=== PATIENT | female | born 1955 | race Caucasian/White ===

== ENCOUNTER → 2019-03-04 | Outpatient (CLI) | payer BC ==
[2019-03-04 15:46] LABS: HEMATOCRIT 40 % (35-52); HEMOGLOBIN 13.1 G/DL (11.5-16.0); MEAN CORPUSCULAR HEMOGLOBIN 27 PG (25-34); MEAN CORPUSCULAR HGB CONC 33 G/DL (32-36); MEAN CORPUSCULAR VOLUME 82 FL (80-99); MEAN PLATELET VOLUME 10.1 FL (7.4-10.4); PLATELET COUNT 259 10^3/uL (130-400); WHITE BLOOD COUNT 6.5 10^3/uL (4.3-11.0)
[2019-03-04 15:47] LABS: BASOPHILS # (AUTO) 0.1 10^3/uL (0.0-0.1); BASOPHILS % (AUTO) 1 % (0-10); EOSINOPHILS # (AUTO) 0.3 10^3/uL (0.0-0.3); EOSINOPHILS % (AUTO) 5 % (0-10); LYMPHOCYTES # (AUTO) 1.1 X 10^3 (1.0-4.0); LYMPHOCYTES % (AUTO) 18 % (12-44); MONOCYTES # (AUTO) 0.5 X 10^3 (0.0-1.0); MONOCYTES % (AUTO) 7 % (0-12); NEUTROPHILS # (AUTO) 4.5 X 10^3 (1.8-7.8); NEUTROPHILS % (AUTO) 69 % (42-75)
[2019-03-04 16:04] LABS: CARBON DIOXIDE 28 MMOL/L (21-32); CHLORIDE 97 MMOL/L (98-107); POTASSIUM 3.5 MMOL/L (3.6-5.0); SODIUM 137 MMOL/L (135-145)
[2019-03-04 16:05] LABS: ALANINE AMINOTRANSFERASE 20 U/L (0-55); ALKALINE PHOSPHATASE 78 U/L (40-136); BILIRUBIN,TOTAL 0.3 MG/DL (0.1-1.0); BUN/CREATININE RATIO 18; CALCIUM 9.1 MG/DL (8.5-10.1); CREATININE SERUM 0.66 MG/DL (0.60-1.30); GFR ESTIMATED > 60; GLUCOSE 271 MG/DL (70-105); TOTAL PROTEIN 6.2 GM/DL (6.4-8.2)
== END ==
LOC: LAB FS 14:45
PROVIDERS: ATTEND Internal Medicine Hematology & Oncology
DX: C82.08 Follicular lymphoma grade I, lymph nodes of multiple sites (principal)
CPT/HCPCS: 36415; 80053; 81270; 82728; 82784; 83540; 83615; 85025

== ENCOUNTER → 2019-03-05 | Outpatient (CLI) | payer BC ==
[~2019-03-05] MED LIST: CATHETER FLUSH 10 ML SYR IV PRN; DIATRIZOATE MEGLUM/SODIUM 37% 120 ML (GASTROGRAFIN) PO ONE; HOLD METFORMIN - RECEIVED CONTRAST 20 ML VIAL IV SCH; IOHEXOL 350 MG/ML 150 ML (OMNIPAQUE 350) VIAL IV ONE; NS 100 ML (IVPB) BAG IV ONE
--- NOTE | 2019-03-05 10:45 | Diagnostic Imaging Report ---
CT NECK/CHEST/ABDOMEN/PELVIS W Technique: CT imaging of the neck, chest, abdomen and pelvis was performed with IV contrast. Automatic exposure controls were utilized to keep dose as low as reasonably achievable. Indication: Follicular lymphoma. Comparison: None available. Findings: CT NECK: No cervical lymphadenopathy. The thyroid is normal. Submandibular and parotid glands are normal in appearance. Airways are widely patent. No abnormal mucosal thickening or soft tissue mass within the pharynx or larynx. Ankylosis versus arthrodesis of C5-C6. No concerning focal osseous lesions. CT CHEST: No supraclavicular or axillary lymphadenopathy. No mediastinal, hilar or juxtaphrenic lymphadenopathy. Heart is normal in size without pericardial effusion. Normal caliber thoracic aorta. No endoluminal nodule within the trachea. No pulmonary mass or consolidation. No concerning pulmonary nodule. No pleural effusion. No lytic or blastic skeletal lesions. CT ABDOMEN AND PELVIS: Liver is on the upper limits of normal in size although this is likely due to normal Nia lobe. No splenomegaly. No focal lesion within the spleen or liver. Pancreas is normal. No radiopaque gallstones or biliary duct dilatation. No adrenal mass. Kidneys enhance symmetrically without mass lesion or surrounding soft tissue induration. No obstructive uropathy. Urinary bladder is normal. Status post hysterectomy. No pericolonic inflammation. No bowel obstruction. The stomach is partially filled with fluid and there is no wall thickening. Normal appendix. Normal caliber abdominal aorta. No abdominal or pelvic lymphadenopathy. No worrisome focal osseous lesion. Impression: 1. No lymphadenopathy in the neck, chest, abdomen or pelvis. 2. No organomegaly. Dictated by: Dictated on workstation # [id number]
== END ==
LOC: RAD FS 08:37
PROVIDERS: ATTEND Internal Medicine Hematology & Oncology
DX: C82.90 Follicular lymphoma, unspecified, unspecified site (principal)
CPT/HCPCS: 70491; 71260; 74176

== ENCOUNTER 2020-09-02 09:19 | Outpatient (RCR) | payer BC ==
[2020-09-02 10:04] LABS: BASOPHILS # (AUTO) 0.1 10^3/uL (0.0-0.1); BASOPHILS % (AUTO) 1 % (0-10); EOSINOPHILS # (AUTO) 0.3 10^3/uL (0.0-0.3); EOSINOPHILS % (AUTO) 5 % (0-10); HEMATOCRIT 44 % (35-52); HEMOGLOBIN 14.3 g/dL (11.5-16.0); LYMPHOCYTES # (AUTO) 1.2 10^3/uL (1.0-4.0); LYMPHOCYTES % (AUTO) 18 % (12-44); MEAN CORPUSCULAR HEMOGLOBIN 27 pg (25-34); MEAN CORPUSCULAR HGB CONC 32 g/dL (32-36); MEAN CORPUSCULAR VOLUME 84 fL (80-99); MEAN PLATELET VOLUME 9.9 fL (9.0-12.2); MONOCYTES # (AUTO) 0.6 10^3/uL (0.0-1.0); MONOCYTES % (AUTO) 8 % (0-12); NEUTROPHILS # (AUTO) 4.7 10^3/uL (1.8-7.8); NEUTROPHILS % (AUTO) 68 % (42-75); PLATELET COUNT 315 10^3/uL (130-400); WHITE BLOOD COUNT 6.9 10^3/uL (4.3-11.0)
[2020-09-02 10:16] LABS: ALANINE AMINOTRANSFERASE 34 U/L (0-55); ALBUMIN 4.2 GM/DL (3.2-4.5); ALKALINE PHOSPHATASE 74 U/L (40-136); BILIRUBIN,TOTAL 0.5 MG/DL (0.1-1.0); BUN/CREATININE RATIO 13; CALCIUM 9.1 MG/DL (8.5-10.1); CARBON DIOXIDE 26 MMOL/L (21-32); CHLORIDE 101 MMOL/L (98-107); CREATININE SERUM 0.76 MG/DL (0.60-1.30); GFR ESTIMATED > 60; GLUCOSE 173 MG/DL (70-105); POTASSIUM 4.1 MMOL/L (3.6-5.0); SODIUM 138 MMOL/L (135-145); TOTAL PROTEIN 6.5 GM/DL (6.4-8.2)
[2020-10-19] MEDS ORDERED: POTA10TA36 PO (14:44)
[2020-10-19] MEDS ORDERED: DULA1.5P2 SQ (14:44)
[2020-10-19] MEDS ORDERED: LEVO150C4 PO (14:44)
[2020-10-19] MEDS ORDERED: FLUO20TA28 PO (14:44)
[2020-10-19] MEDS ORDERED: METF-399 PO (14:44)
[2020-10-19] MEDS ORDERED: LOSA50TA63 PO (14:44)
[2020-10-19] MEDS ORDERED: LORA-405 PO (14:44)
[2020-10-19] MEDS ORDERED: INSU100I29 SQ (14:44)
[2020-10-19] MEDS ORDERED: HYDR25TA4 PO (14:44)
[2020-10-19] MEDS ORDERED: OMEP40CA6 PO (14:44)
[2020-10-19] MEDS ORDERED: DULO30CA49 PO (14:44)
[2020-10-19] MEDS ORDERED: ATOR20TA66 PO (14:44)
[2020-10-26] MEDS ORDERED: ASPI-1238 PO (11:58)
[2020-10-26] MEDS ORDERED: RT-ALBUINH IH (11:58)
[2020-10-26] MEDS ORDERED: CINN500C2 PO (11:58)
[2020-10-26] MEDS ORDERED: VITA1TAB33 PO (11:58)
[2020-10-26] MEDS ORDERED: MAGN500C15 PO (11:58)
[2020-10-26] MEDS ORDERED: GARL10002 PO (11:58)
[2020-10-26] MEDS ORDERED: CALC-140 PO (11:58)
[2020-10-26] MEDS ORDERED: TIZA4TAB4 PO (11:58)
[2020-10-26] MEDS ORDERED: OMG1KC PO (11:58)
== END 2020-12-01 | disposition home or self-care (01) ==
LOC: ONC 09:19
PROVIDERS: ATTEND Internal Medicine Hematology & Oncology
DX: C82.90 Follicular lymphoma, unspecified, unspecified site (principal); J45.909 Unspecified asthma, uncomplicated; E11.9 Type 2 diabetes mellitus without complications; I10 Essential (primary) hypertension; E03.9 Hypothyroidism, unspecified; Z92.21 Personal history of antineoplastic chemotherapy; K29.70 Gastritis, unspecified, without bleeding; K44.9 Diaphragmatic hernia without obstruction or gangrene; E66.01 Morbid (severe) obesity due to excess calories; Z79.890 Hormone replacement therapy; Z79.899 Other long term (current) drug therapy; Z79.4 Long term (current) use of insulin; Z68.41 Body mass index [BMI] 40.0-44.9, adult
CPT/HCPCS: 80053; 82784 ×3; 83615; 83883; 84165; 85025; G0463; 84155; 99214

== ENCOUNTER → 2020-09-07 | Outpatient (CLI) | payer BC ==
[~2020-09-07] MED LIST changes: +BARIUM SUSPENSION 2.1% (VANILLA SILQ) 450 ML PO ONE; -DIATRIZOATE MEGLUM/SODIUM 37% 120 ML (GASTROGRAFIN) PO ONE
--- NOTE | 2020-09-07 11:28 | Diagnostic Imaging Report ---
PROCEDURE: CT Neck, Chest Abdomen and Pelvis with contrast, Abdomen and Pelvis without. TECHNIQUE: Multiple contiguous axial images were obtained through the neck, chest, abdomen, and pelvis after the uneventful bolus administration of intravenous contrast. Precontrast acquisitions through the abdomen and pelvis were performed. Sagittal and coronal reformations are then performed. Auto Exposure Controls were utilized during the CT exam to meet ALARA standards for radiation dose reduction. INDICATION: Non-Hodgkin's lymphoma. Study is performed for yearly follow-up. Correlation is made with prior CT from 03/05/2019. CT NECK: Imaging through the portions of brain does show hyperdensity within the central aspect of the yoni measuring 8 mm. This could represent a cavernoma. Posterior nasopharynx and oropharynx are unremarkable. Parapharyngeal fat planes are preserved. Epiglottis and larynx are unremarkable. A partially calcified tiny nodule left lobe of the thyroid is noted. Bilateral submandibular glands are unremarkable. No discrete parotid mass is identified. No cervical lymphadenopathy is detected. IMPRESSION: 1. No cervical lymphadenopathy is detected. 2. Rounded hyperdensity in the central yoni, perhaps a cavernoma. MRI of the brain with and without contrast would be recommended for further evaluation. CT CHEST: No supraclavicular or axillary lymphadenopathy is detected. No definite mediastinal or hilar lymphadenopathy is identified. No pericardial or pleural fluid is detected. Bony structures are unremarkable. IMPRESSION: Stable CT chest. No thoracic lymphadenopathy is detected. CT abdomen pelvis: No liver masses identified. Gallbladder is unremarkable. Pancreas and spleen are unremarkable. No adrenal mass is detected. Kidneys are unremarkable. Aorta is nonaneurysmal. No central, retroperitoneal or mesenteric lymphadenopathy is seen. The small and large bowel loops are normal caliber. There is no free fluid or fluid collection. No definite inguinal or iliac lymphadenopathy is identified. The bladder is unremarkable. Uterus appears to be absent or atrophic. IMPRESSION: No evidence of abdominal or pelvic lymphadenopathy. No acute features detected. Dictated by: Dictated on workstation # [id number]
== END ==
LOC: RAD FS 09:34
PROVIDERS: ATTEND Internal Medicine Hematology & Oncology
DX: G93.89 Other specified disorders of brain (principal); Z85.72 Personal history of non-Hodgkin lymphomas
CPT/HCPCS: 70491; 71260; 74178

== ENCOUNTER → 2020-10-03 | Outpatient (CLI) | payer BC ==
[~2020-10-03] MED LIST changes: -BARIUM SUSPENSION 2.1% (VANILLA SILQ) 450 ML PO ONE; -CATHETER FLUSH 10 ML SYR IV PRN; +GADOBUTROL 10 MMOL/10 ML (GADAVIST) VIAL IV ONE; -HOLD METFORMIN - RECEIVED CONTRAST 20 ML VIAL IV SCH; -IOHEXOL 350 MG/ML 150 ML (OMNIPAQUE 350) VIAL IV ONE; -NS 100 ML (IVPB) BAG IV ONE
--- NOTE | 2020-10-03 11:10 | Diagnostic Imaging Report ---
PROCEDURE: MR imaging of the brain with and without contrast. TECHNIQUE: Multiplanar, multisequence MR imaging of the brain was performed with and without contrast. INDICATION: Abnormal finding in the yoni on recent CT of the neck. COMPARISON: CT neck with IV contrast 03/05/2019, 09/07/2020. FINDINGS: There is an enhancing mass in the central yoni measuring 0.7 x 1.0 x 0.7 cm. There is no significant vasogenic edema about this mass. No associated susceptibility artifact or restricted water diffusion. There is a subtle suggestion of a small vessel traversing anteriorly. No other abnormal intracranial signal or enhancement. No evidence of acute infarction or hemorrhage. No hydrocephalus or extra-axial fluid collections. Normal intracranial flow voids. Normal morphology of the major midline structures, sella, posterior fossa and cerebellar pontine angle. Postoperative changes in the globes. The visualized paranasal sinuses and mastoids are clear. Normal bone marrow signal. IMPRESSION: Indeterminate enhancing mass centrally in the yoni measuring up to 0.7 cm. There is suggestion of a small vessel traversing anterior from this mass. No associated hemosiderin deposition or cystic change. No restricted water diffusion. These findings are nonspecific and could represent a vascular anomaly such as a cavernoma or capillary telangiectasia. A solid mass such as a glioma or metastasis could have a similar appearance. Vascular anomalies are considered most likely given this mass has been present since at least 03/05/2019. Recommend neurosurgical evaluation. Dictated by: Dictated on workstation # [id number]
== END ==
LOC: RAD 09:56
PROVIDERS: ATTEND Nurse Practitioner Family
DX: R90.89 Other abnormal findings on diagnostic imaging of central nervous system (principal)
CPT/HCPCS: 70553

== ENCOUNTER → 2020-10-13 | Outpatient (CLI) | payer BC ==
--- NOTE | 2020-10-13 10:02 | Diagnostic Imaging Report ---
PROCEDURE: US Gallbladder. TECHNIQUE: Multiple real-time grayscale images were obtained over the right upper quadrant in various projections. INDICATION: Abdominal pain. Overall quality study is somewhat limited due to patient's body habitus and overlying bowel gas. Liver is enlarged 19 cm. There is some increased echogenicity throughout the liver consistent with hepatic steatosis. No discrete liver mass is detected. The portal vein is patent and shows normal direction of flow. Gallbladder is without stones or sludge. No wall thickening or biliary ductal dilatation is seen. The visualized pancreas is unremarkable. Aorta appears nonaneurysmal. IVC is patent. Right kidney is without calculi or hydronephrosis. There is no ascites. IMPRESSION: 1. Hepatomegaly and hepatic steatosis. 2. No evidence of cholelithiasis or acute cholecystitis. Dictated by: Dictated on workstation # [id number]
== END ==
LOC: RAD FS 08:41
PROVIDERS: ATTEND Surgery
DX: K76.0 Fatty (change of) liver, not elsewhere classified (principal); R16.0 Hepatomegaly, not elsewhere classified
CPT/HCPCS: 76705

== ENCOUNTER 2020-10-19 05:40 | Outpatient (CLI) | payer BC ==
[~2020-10-19] VITALS: Ht 160 cm; Wt 106.6 kg
[2020-10-19] MEDS ORDERED: METF-399 PO (14:44)
[2020-10-19] MEDS ORDERED: DULO30CA49 PO (14:44)
[2020-10-19] MEDS ORDERED: LEVO150C4 PO (14:44)
[2020-10-19] MEDS ORDERED: HYDR25TA4 PO (14:44)
[2020-10-19] MEDS ORDERED: ATOR20TA66 PO (14:44)
[2020-10-19] MEDS ORDERED: FLUO20TA28 PO (14:44)
[2020-10-19] MEDS ORDERED: INSU100I29 SQ (14:44)
[2020-10-19] MEDS ORDERED: LORA-405 PO (14:44)
[2020-10-19] MEDS ORDERED: LOSA50TA63 PO (14:44)
[2020-10-19] MEDS ORDERED: OMEP40CA6 PO (14:44)
[2020-10-19] MEDS ORDERED: DULA1.5P2 SQ (14:44)
[2020-10-19] MEDS ORDERED: POTA10TA36 PO (14:44)
== END 2020-10-19 15:30 | disposition home or self-care (01) ==
LOC: PREOP 05:40
PROVIDERS: ATTEND Surgery
DX: Z01.818 Encounter for other preprocedural examination (principal)

== ENCOUNTER → 2020-10-24 | Outpatient (CLI) | payer BC ==
[~2020-10-24] MED LIST changes: +ASPI-1238 PO; +ATOR20TA66 PO; +CALC-140 PO; +CATHETER FLUSH 10 ML SYR IV PRN; +CINN500C2 PO; +DULA1.5P2 SQ; +DULO30CA49 PO; +FLUO20TA28 PO; -GADOBUTROL 10 MMOL/10 ML (GADAVIST) VIAL IV ONE; +GARL10002 PO; +HYDR25TA4 PO; +INSU100I29 SQ; +LEVO150C4 PO; +LORA-405 PO; +LOSA50TA63 PO; +MAGN500C15 PO; +METF-399 PO; +OMEP40CA6 PO; +OMG1KC PO; +POTA10TA36 PO; +RT-ALBUINH IH; +TIZA4TAB4 PO; +VITA1TAB33 PO
--- NOTE | 2020-10-24 14:45 | Diagnostic Imaging Report ---
INDICATION: Generalized abdominal pain. Patient was administered 4.0 mCi technetium 99m Choletec intravenously and imaging over the abdomen was performed. There is homogeneous uptake of activity by the liver. This prompt excretion of activity into the gallbladder and common duct. Normal passage of activity into the small bowel is noted. Gallbladder ejection fraction is lower limits of normal at 38%. IMPRESSION: Normal HIDA scan and gallbladder ejection fraction. Dictated by: Dictated on workstation # [id number]
== END ==
LOC: CARD 12:00
PROVIDERS: ATTEND Surgery
DX: R10.84 Generalized abdominal pain (principal)
CPT/HCPCS: 78227; A9537

== ENCOUNTER → 2020-10-24 | Outpatient (CLI) | payer BC ==
[~2020-10-24] MED LIST changes: -CATHETER FLUSH 10 ML SYR IV PRN
== END ==
LOC: LAB FS 10:00
PROVIDERS: ATTEND Surgery
DX: Z01.812 Encounter for preprocedural laboratory examination (principal); K30 Functional dyspepsia; R14.0 Abdominal distension (gaseous); Z20.822 Contact with and (suspected) exposure to COVID-19
CPT/HCPCS: 87635

== ENCOUNTER 2020-10-26 11:26 | Day surgery (SDC) | payer BC ==
[2020-10-26] VITALS (7 sets, daily range): BP systolic 108–159; BP diastolic 52–92
[~2020-10-26] VITALS: Ht 160 cm; Wt 107.0 kg
[~2020-10-26 11:26] MED LIST changes: -ASPI-1238 PO; -CALC-140 PO; -CINN500C2 PO; -GARL10002 PO; -MAGN500C15 PO; -OMG1KC PO; -RT-ALBUINH IH; -TIZA4TAB4 PO; -VITA1TAB33 PO
[2020-10-26] MEDS ORDERED: LACTATED RINGERS 1,000 ML IV STA (11:27)
[2020-10-26] MEDS ORDERED: HURRICAINE EXT TUBE (BENZOCAINE) XX PRN (11:30)
[2020-10-26] MEDS ORDERED: LACTATED RINGERS 1,000 ML IV ONE (11:32)
--- NOTE | 2020-10-26 11:39 | Progress Note-Pre Operative ---
Pre-Operative Progress Note H&P Reviewed The H&P was reviewed, patient examined and no changes noted. Time Seen by Provider: 11:37 Date H&P Reviewed: Oct 26, 2020 Time H&P Reviewed: 11:37 Pre-Operative Diagnosis: GERD, Hx of griffin's, bloating ELAINA NAVARRO DO Oct 26, 2020 11:39
[2020-10-26] MEDS ORDERED: OMG1KC PO (11:58)
[2020-10-26] MEDS ORDERED: TIZA4TAB4 PO (11:58)
[2020-10-26] MEDS ORDERED: GARL10002 PO (11:58)
[2020-10-26] MEDS ORDERED: VITA1TAB33 PO (11:58)
[2020-10-26] MEDS ORDERED: ASPI-1238 PO (11:58)
[2020-10-26] MEDS ORDERED: RT-ALBUINH IH (11:58)
[2020-10-26] MEDS ORDERED: CALC-140 PO (11:58)
[2020-10-26] MEDS ORDERED: CINN500C2 PO (11:58)
[2020-10-26] MEDS ORDERED: MAGN500C15 PO (11:58)
[2020-10-26] MEDS ORDERED: proPOfol 200 MG/20 ML (DIPRIVAN) VIAL IV ONE (12:13)
--- NOTE | 2020-10-26 12:30 | Progress Note-Post Operative ---
Post-Operative Progess Note Surgeon (s)/Management Professor (s) Surgeon ELAINA NAVARRO DO Management Professor: NONE Pre-Operative Diagnosis GERD, Hx of griffin's, bloating Post-Operative Diagnosis Same plus gastritis Hiatal hernia Procedure & Operative Findings Date of Procedure 10/26/20 Procedure Performed/Findings PROCEDURE NOTE: After informed consent was obtained, the patient was brought to the endoscopy suite, placed in bed in left lateral decubitus position. She was administered IV sedation by the DIORAMA MODEL MAKER who then monitored her vitals the entire time, heart rate, blood pressure and pulse ox and the scope was inserted down the mouth through the esophagus into the stomach. On the way down, noted some mild esophagitis, took a picture, pushed into the stomach, pushed past the antrum into the duodenum. Duodenum looked good. Pulled back and did a biopsy of antrum (looked like some mild gastritis), then retroflexed the scope, saw a small hiatal hernia, took a picture of this. Next did a biopsy of the body of the stomach and then pulled the scope into the GE junction, took another picture of the hiatal hernia and then did a biopsy of the GE junction. Pushed the scope back into the stomach, suctioned all the air out of the stomach. At this point pulled the scope up the esophagus and out the mouth. The patient tolerated the procedure, and she recovered in endoscopy suite. Anesthesia Type IV sedation by DIORAMA MODEL MAKER Estimated Blood Loss Estimated blood loss (mL): scant Specimens/Packing Specimens Removed antral bx body of stomach bx GE jxn bx x 2 ELAINA NAVARRO DO Oct 26, 2020 12:30
--- NOTE | 2020-10-26 12:31 | Endoscopy Discharge Instruct ---
Endo Procedure/Findings Findings 1.: Gastritis 2.: Hiatal Hernia Discharge Instructions - Activity: You might feel a little sleepy until tomorrow. This is due to the medicine you received to relax you. Until tomorrow, you should: NOT drive a car, operate machinery or power tools. NOT drink any alcoholic beverages. NOT make any important decisions or sign importortant papers. Do not return to work until tomorrow, unless otherwise instructed. Resume previous activities tomorrow. Diet: Start by taking liquids. If you tolerate liquids, advance to solid food. 1.: EGD in 3 years Notify Physician - If you experience excessive bleeding, unusual abdominal pain, fever, or chest pain, contact your doctor immediately. ELAINA NAVARRO DO Oct 26, 2020 12:31
--- NOTE | 2020-10-26 14:13 | Anesthesia-General Post-Op ---
MAC Patient Condition Mental Status/LOC: Same as Preop Cardiovascular: Satisfactory Nausea/Vomiting: Absent Respiratory: Satisfactory Pain: Controlled Complications: Absent Post Op Complications Complications None Follow Up Care/Instructions Patient Instructions None needed. Anesthesiology Discharge Order Discharge Order Patient is doing well, no complaints, stable vital signs, no apparent adverse anesthesia problems. No complications reported per nursing. BALJINDER OTOOLE CRNA Oct 26, 2020 14:13
== END 2020-10-26 13:11 | disposition home or self-care (01) ==
LOC: ENDO 11:26
PROVIDERS: ATTEND Surgery
DX: K21.00 Gastro-esophageal reflux disease with esophagitis, without bleeding (principal); K29.50 Unspecified chronic gastritis without bleeding; K22.8 Other specified diseases of esophagus; K44.9 Diaphragmatic hernia without obstruction or gangrene; E03.9 Hypothyroidism, unspecified; E66.01 Morbid (severe) obesity due to excess calories; E11.9 Type 2 diabetes mellitus without complications; I10 Essential (primary) hypertension; J45.909 Unspecified asthma, uncomplicated; F32.9 Major depressive disorder, single episode, unspecified; Z79.890 Hormone replacement therapy; Z79.899 Other long term (current) drug therapy; Z79.84 Long term (current) use of oral hypoglycemic drugs; Z90.710 Acquired absence of both cervix and uterus; Z87.19 Personal history of other diseases of the digestive system; Z87.11 Personal history of peptic ulcer disease; Z68.41 Body mass index [BMI] 40.0-44.9, adult; Z85.828 Personal history of other malignant neoplasm of skin; Z80.3 Family history of malignant neoplasm of breast; Z80.1 Family history of malignant neoplasm of trachea, bronchus and lung; Z80.52 Family history of malignant neoplasm of bladder; Z80.51 Family history of malignant neoplasm of kidney

== ENCOUNTER 2020-12-17 06:23 | Emergency (ER) | payer BC ==
[~2020-12-17] VITALS: Ht 160 cm; Wt 106.1 kg
[~2020-12-17 06:23] MED LIST changes: +ASPI-1238 PO; +CALC-140 PO; +CINN500C2 PO; +GARL10002 PO; +MAGN500C15 PO; +OMG1KC PO; +RT-ALBUINH IH; +TIZA4TAB4 PO; +VITA1TAB33 PO
[2020-12-17 06:30] VITALS: BP 168/81
--- OUTSIDE RECORDS SUMMARY | 2020-12-17 06:30 | XMS REPORT | Clinical Summary ---
Author Author [facility] Organization [facility] Address Unknown Phone Unavailable Care Team Providers Care Business Education Teacher Name Role Phone Luisa Valencia HAY BALER PCP Allergies Not on File Medications Not on file Active Problems Not on file Encounters Care Team Description Date Type Specialty Luisa Valencia NP Abnormal MRI of head (Primary Dx) 10/24/2020 Transcribe Neurology Orders from Last 3 Months Social History Date Tobacco Use Types Packs/Day Years Used Never Assessed Sex Assigned at Date Recorded Not on file Last Filed Vital Signs Not on file Plan of Treatment Not on file Results Not on filefrom Last 3 Months Insurance Type Payer Benefit Subscriber ID Effective Phone Address Plan / Dates Group [facility] [id number] [id number] EXCHANGE resent HMO
--- OUTSIDE RECORDS SUMMARY | 2020-12-17 06:30 | XMS REPORT | Encounter Summary ---
Author Author [facility] Organization [facility] Address Unknown Phone Unavailable Care Team Providers Care Balance Recesser Name Role Phone Maribell Stone NP PCP Luisa Valencia DIRECTOR EXPORT 21 Encounter Details Care Team Description Date Type Department 11/23/2020 Travel Social History Date Tobacco Use Types Packs/Day Years Used Never Smoker Smokeless Tobacco: Never Used Comments Alcohol Use Standard Drinks/Week Never 0 (1 standard drink = 0.6 o z pure alcohol) Alcohol Habits Answer Date Recorded How often do you have a drink containing alcohol? Never 11/23/2020 How many drinks containing alcohol do you have on No t asked a typical day when you are drinking? How often do you have six or more drinks on one Not asked occasion? Sex Assigned at Date Recorded Not on file Date Recorded COVID-19 Exposure Response 11/23/2020 9:57 AM CDT In the last month, have you been in contact with No / Unsure someone who was confirmed or suspected to have Coronavirus / COVID-19? documented as of this encounter Plan of Treatment Not on filedocumented as of this encounter Visit Diagnoses Not on filedocumented in this encounter
--- OUTSIDE RECORDS SUMMARY | 2020-12-17 06:30 | XMS REPORT | Encounter Summary ---
Author Author [facility] Organization [facility] Address Unknown Phone Unavailable Care Team Providers Care Bd Special Education Teacher Name Role Phone Luisa Valencia NP PCP Reason for Referral * Consultation (Routine) Referred By Contact Referred To Contact Status Reason Specialty Diagnoses / Procedures Luisa Valencia NP [address] [place] [address] Closed Specialty Services Diagnoses Required Abnormal MRI of head Electronically signed by Luisa Valencia NP at Encounter Details Care Team Description Date Type Department Luisa Valencia NP [address], [place] [id number] Abnormal MRI of head (Primary Dx) 10/24/2020 Transcribe [facility] Neurol ogy Orders [address], [address] [place] [id number] Social History Date Tobacco Use Types Packs/Day Years Used Never Assessed Sex Assigned at Date Recorded Not on file documented as of this encounter Plan of Treatment Order Schedule Name Type Priority Associated Diag noses 1 Occurrences starting 10/24/2020 until 10/24/2021 Amb Referral To Neurology Outpatient Routine Abno rmal MRI of head Referral documented as of this encounter Visit Diagnoses Diagnosis Abnormal MRI of head - Primary Nonspecific (abnormal) findings on radi ological and other examination of skull and head documented in this encounter
--- OUTSIDE RECORDS SUMMARY | 2020-12-17 06:30 | XMS REPORT | Clinical Summary ---
Author Author [facility] Organization [facility] Address Unknown Phone Unavailable Care Team Providers Care Congressional Assistant Name Role Phone Maribell Stone NP PCP Luisa Valencia APRN 21 Source Comments Some departments are not documenting in the electronic medical record. If you d o not see the information that you expected, contact Release of Information in [facility] Information Management department at [phone] for further assistan ce in locating additional records.[facility] Allergies Comments Active Allergy Reactions Severity Noted Date plasic Adhesive Tape (Rosins) RASH Medium 021 Medications End Date Status Medication Sig Dispensed Refills Start Date Active levothyroxine (SYNTHROID) Take 150 mcg 0 150 mcg tablet by mouth daily 30 minutes before breakfast. Active losartan (COZAAR) 50 mg Take 50 mg by 0 tablet mouth twice daily. Active metFORMIN (GLUCOPHAGE) Take 1,000 mg 0 1,000 mg tablet by mouth twice daily with meals. Active hydroCHLOROthiazide Take 25 mg by 0 (HYDRODIURIL) 25 mg mouth every tablet morning. Active potassium chloride SR Take 10 mEq 0 (K-DUR) 10 mEq tablet by mouth twice daily. Take with a meal and a full glass of water. Active INSULIN DETEMIR U-100 SC Inject 21 0 Units under the skin twice daily. Active dulaglutide (TRULICITY) Inject 0.75 0 0.75 mg/0.5 mL injection mg under the pen skin every 7 days. Active atorvastatin (LIPITOR) 20 Take 20 mg by 0 mg tablet mouth daily. Active fluticasone propionate Inhale 4 0 (FLOVENT HFA) 220 puffs by mcg/actuation inhaler mouth into the lungs twice daily. Active omeprazole DR (PRILOSEC) Take 40 mg by 0 40 mg capsule mouth daily before breakfast. Active albuterol sulfate (PROAIR Inhale 2 0 HFA) 90 mcg/actuation HFA puffs by aerosol inhaler mouth into the lungs every 6 hours as needed for Wheezing or Shortness of Breath. Shake well before use. Active ascorbic acid (VITAMIN C) Take 500 mg 0 500 mg tablet by mouth daily. Active aspirin EC 81 mg tablet Take 81 mg by 0 mouth daily. Take with food. Active vitamins, B complex tab Take 1 tablet 0 by mouth daily. Active calcium carbonate/vitamin Take 1 tablet 0 D2 (CALCIUM + VITAMIN D by mouth PO) daily. Active fish oil- omega 3-DHA/EPA Take 1 0 300/1,000 mg capsule capsule by mouth daily. Active Garlic 1,000 mg cap Take 1 0 capsule by mouth daily. Active Cinnamon Bark (CINNAMON) Take 1,000 mg 0 500 mg cap by mouth twice daily. Active Magnesium 250 mg tab Take 500 mg 0 by mouth every evening. Active cholecalciferol (VITAMIN Take 2,000 0 D-3) 1,000 units tablet Units by mouth daily. Active TURMERIC PO Take 500 mg 0 by mouth daily. 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) 11/23/2020 Office Visit Neurosurgery 11/23/2020 Travel from Last 3 Months Immunizations Name Administration Dates Next Due Surgical History Surgery Date Site/Laterality Comments CARPAL TUNNEL RELEASE 04/29/1994 - Right 04/28/1995 SPINE SURGERY CARPAL TUNNEL RELEASE 04/29/2001 - Left 04/28/2002 FINGER TRIGGER RELEASE 04/29/2004 - Right 04/28/2005 BREAST SURGERY 04/29/2004 - Bilateral Reduction mammo plasty 04/28/2005 HX HYSTERECTOMY SKIN CANCER DESTRUCTION Right side of nose HX CATARACT REMOVAL Medical History Medical History Date Comments Cancer (HCC) 2011 Squamous Cell CA DM (diabetes mellitus) (HCC) GERD (gastroesophageal reflux disease) Hypertension High cholesterol Depression Thyroid disease Asthma Family History Medical History Relation Name Comments Arthritis Mother Depression Mother Diabetes Mother Heart Disease Mother Hypertension Mother Relation Name Status Comments Mother Social History Date Tobacco Use Types Packs/Day [...] or suspected to have Coronavirus / COVID-19? Last Filed Vital Signs Reading Time Taken Comments Vital Sign 152/87 11/23/2020 10:57 AM CDT patient with mon itor at home and notify PCP Blood Pressure 74 11/23/2020 10:57 AM CDT Pulse - - Temperature - - Respiratory Rate - - Oxygen Saturation - - Inhaled Oxygen Concentration 104.3 kg (230 lb) 11/23/2020 10:57 AM CDT Weight 160 cm (5' 3") 11/23/2020 10:57 AM CDT Height 40.74 11/23/2020 10:57 AM CDT Body Mass Index Plan of Treatment Health Maintenance Due Date Last Done Comments HIV SCREENING 1971 DTAP/TDAP VACCINES (1 - 1974 Tdap) HEPATITIS C SCREENING 1974 PHYSICAL (COMPREHENSIVE) 1974 EXAM CERVICAL CANCER SCREENING 1977 BREAST CANCER SCREENING 1996 COLORECTAL CANCER 2006 SCREENING SHINGLES RECOMBINANT 04/26/2016 03/01/2016 VACCINE (2 of 2) INFLUENZA VACCINE 01/27/2021 12/30/2019, 03/03/2019 COVID-19 VACCINE Completed 08/03/2020, 07/05/2020 Results Not on filefrom Last 3 Months Insurance Type Payer Benefit Subscriber ID Effective Phone Address Plan / Dates Group [facility] [id number] 2020-P [id number] Advance Directives Patient Warm In Explanation Type Date Recorded Advance Directive/DPOA
--- OUTSIDE RECORDS SUMMARY | 2020-12-17 06:30 | XMS REPORT | Encounter Summary ---
Author Author [facility] Organization [facility] Address Unknown Phone Unavailable Care Team Providers Care Billboard Mechanic Name Role Phone Maribell Stone NP PCP Luisa Valencia INSTITUTIONAL CUSTODIAN 21 Reason for Visit * Reason Comments New Patient "spot show up on MRI" * Consult, Test & Treat (Routine) Referred By Contact Referred To Contact Status Reason Specialty Diagnoses / Procedures Luisa Valencia APRN [address] [place] [address] [facility] Neurosurg [address] [place] [address] Authorized Neurosurgery Diagnoses Abnormal MRI of head Encounter Details Care Team Description Date Type Department Arnoldo Sadler MD [address] [place] [address] 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 documented as of this encounter Last Filed Vital Signs Reading Time Taken Comments Vital Sign 152/87 11/23/2020 10:57 AM CDT patient with renee itor at home and notify PCP Blood Pressure 74 11/23/2020 10:57 AM CDT Pulse - - Temperature - - Respiratory Rate - - Oxygen Saturation - - Inhaled Oxygen Concentration 104.3 kg (230 lb) 11/23/2020 10:57 AM CDT Weight 160 cm (5' 3") 11/23/2020 10:57 AM CDT Height 40.74 11/23/2020 10:57 AM CDT Body Mass Index documented in this encounter Progress Notes * Arnoldo Sadler MD - 11/23/2020 10:30 AM CDT NEUROSURGERY CLINIC CONSULT NOTE 11/23/2020 NAME: Jody Rhodes : 1955 PRIMARY CARE PROVIDER: Maribell Stone REFERRING PROVIDER: Luisa Valencia APRN CONSULT DATE: 11/23/2020 Reason for Visit: New Patient ("spot show up on MRI") HISTORY OF PRESENT ILLNESS: I am seeing Jody Rhodes in neurosurgical consul tation today at the request of Luisa Valencia APRN for the evaluation of and tr eatment recommendations regarding an abnormality in the yoni noted on a recent b rain MRI. She is a 65 y.o. female with a history of hypertension, hypercholester olemia, diabetes mellitus, and lymphoma. 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 She was treated with chemotherapy, completing treatments in 2012. Since that time, she has been monitored with intermittent CT scans of the neck, chest abdomen and pelvis which have been negative thus far as well as SPEP. In reviewing her outside records, it sounds like [facility] an abnormality was noted in the yoni and thus a brain MRI was obtained. She denies diplopia or other visual obscuration, facial numbness or tingling, fa cial weakness or spasms, unilateral/asymmetric hearing loss, vertigo or other ve stibular symptoms, dysarthria, dysphagia, dysphonia, focal weakness of the upper or lower extremities, recent clumsiness or gait deterioration, history of heada curtis, or history of episodic neurological symptoms like those noted above. We reviewed her MRI of the brain from 10/03/2020. This demonstrates a 7 x 10 mm a jason of abnormality within the midline portion of the mid yoni which is slightly eccentric to the right. The mass is T1 isointense, T2 homogeneously hyperintens e but suppresses on FLAIR, dark on diffusion with no or minimal gradient bloomin g and positive enhancement with gadolinium. 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 I think cavernous malformation, mass lesion, or involvement by lymphoma are exceedingly unlikely. There is no surrounding edema. PAST MEDICAL HISTORY: Medical History: Diagnosis Date Asthma Cancer (HCC) 2010 Squamous Cell CA Depression DM (diabetes mellitus) (HCC) GERD (gastroesophageal reflux disease) High cholesterol Hypertension Thyroid disease PAST SURGICAL HISTORY: Surgical History: Procedure Laterality Date CARPAL TUNNEL RELEASE Right 1994 CARPAL TUNNEL RELEASE Left 2001 FINGER TRIGGER RELEASE Right 2005 BREAST SURGERY Bilateral 2005 Reduction mammoplasty HX CATARACT REMOVAL HX HYSTERECTOMY SKIN CANCER DESTRUCTION Right side of nose SPINE SURGERY ALLERGIES: Allergies Allergen Reactions Adhesive Tape (Rosins) RASH plasic HOME MEDICATIONS: albuterol sulfate (PROAIR HFA) 90 mcg/actuation HFA aerosol inhaler Inhale 2 puffs by mouth into the lungs every 6 hours as needed for Wheezing or Shortness of Breath. Shake well before use. ascorbic acid (VITAMIN C) 500 mg tablet Take 500 mg by mouth daily. aspirin EC 81 mg tablet Take 81 mg by mouth daily. Take with food. atorvastatin (LIPITOR) 20 mg tablet Take 20 mg by mouth daily. calcium carbonate/vitamin D2 (CALCIUM + VITAMIN D PO) Take 1 tablet by mouth daily. cholecalciferol (VITAMIN D-3) 1,000 units tablet Take 2,000 Units by mouth d aily. Cinnamon Bark (CINNAMON) 500 mg cap Take 1,000 mg by mouth twice daily. dulaglutide (TRULICITY) 0.75 mg/0.5 mL injection pen Inject 0.75 mg under th e skin every 7 days. fish oil- omega 3-DHA/EPA 300/1,000 mg capsule Take 1 capsule by mouth daily . fluticasone propionate (FLOVENT HFA) 220 mcg/actuation inhaler Inhale 4 puff s by mouth into the lungs twice daily. Garlic 1,000 mg cap Take 1 capsule by mouth daily. hydroCHLOROthiazide (HYDRODIURIL) 25 mg tablet Take 25 mg by mouth every mor ruby. INSULIN DETEMIR U-100 SC Inject 21 Units under the skin twice daily. levothyroxine (SYNTHROID) 150 mcg tablet Take 150 mcg by mouth daily 30 nany abisai before breakfast. losartan (COZAAR) 50 mg tablet Take 50 mg by mouth twice daily. Magnesium 250 mg tab Take 500 mg by mouth every evening. metFORMIN (GLUCOPHAGE) 1,000 mg tablet Take 1,000 mg by mouth twice daily wi th meals. omeprazole DR (PRILOSEC) 40 mg capsule Take 40 mg by mouth daily before miguel kfast. potassium chloride SR (K-DUR) 10 mEq tablet Take 10 mEq by mouth twice daily . Take with a meal and a full glass of water. TURMERIC PO Take 500 mg by mouth daily. vitamins, B complex tab Take 1 tablet by mouth daily. FAMILY HISTORY: No family history on file. SOCIAL HISTORY: Social History Tobacco Use Smoking status: Never Smoker Smokeless tobacco: Never Used Substance Use Topics Alcohol use: Never Drug use: Never REVIEW OF SYSTEMS: Review of Systems Constitutional: Negative. HENT: Positive for hearing loss. Eyes: Negative. Respiratory: Negative. Cardiovascular: Negative. Gastrointestinal: Positive for constipation. Endocrine: Negative. Genitourinary: Negative. Musculoskeletal: Positive for back pain and neck pain. Skin: Negative. Allergic/Immunologic: Negative. Neurological: Positive for dizziness. Hematological: Negative. Psychiatric/Behavioral: Positive for sleep disturbance. The patient is nervous/a nxious. PHYSICAL EXAM: Vitals: 11/23/20 1057 BP: (!) 152/87 BP Source: Arm, Right Upper Patient Position: Sitting Pulse: 74 Weight: 104.3 kg (230 lb) Height: 160 cm (63") PainSc: Three Neuro: Awake and alert. Speech-language are normal. Extraocular movements are fu ll without nystagmus or diplopia. Trigeminal sensation is intact. Facial movemen t is symmetric. The palate elevates symmetrically. The tongue protrudes in the m idline. Strength is full in both upper and lower extremities. Sensation is intac t to light touch throughout both upper and lower extremities. Station and gait a re normal and steady. Vqbhdo-mzrd-lbbzoy and rapid alternating movements are nor mal. ASSESSMENT/PLAN: 1. 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 woman with a history of follicular lymphoma in [place] since 2012 who presents for evaluation of an asymptomatic enhancing 7 x 10 mm lesion within the mid yoni. The MRI appearance is most consistent with a capillary telangiectasia - the enhancement pattern is somewhat stippled and ther e are a couple of very fine, thin vascular structures that radiate out from the main area of enhancement in a couple of locations. There are no hypertrophied v essels to suggest that this is a high flow vascular abnormality. There is no T2 heterogeneity or gradient blooming and thus I think cavernoma is very unlikely. There is no surrounding edema and the mass is dark on diffusion, making SOUND EFFECTS SUPERVISOR in volvement by her lymphoma exceedingly unlikely. We discussed the capillary telangiectasias are normal vessels, and are currently thought not to be associated with a risk for hemorrhage. There are no limitati ons or restrictions from a neurosurgical standpoint. There are no specific medi isha considerations that need to be taken. I would not recommend radiographic fo llow-up. She would not need neurosurgical follow-up. Arnoldo Sadler MD [employer] Bath Operator - Neurosurgery [facility] O: [phone] F: [phone] P: [phone] documented in this encounter Plan of Treatment Not on filedocumented as of this encounter Visit Diagnoses Diagnosis Vascular abnormality of brain - capilla ry telangectasia of the yoni - Primary documented in this encounter Historical Medications * This list may reflect changes made after this encounter. Start Date End Date Medication Sig Dispensed Refills TURMERIC PO Take 500 mg 0 by mouth daily. cholecalciferol (VITAMIN Take 2,000 0 D-3) 1,000 units tablet Units by mouth daily. Magnesium 250 mg tab Take 500 mg 0 by mouth every evening. Cinnamon Bark (CINNAMON) Take 1,000 mg 0 500 mg cap by mouth twice daily. Garlic 1,000 mg cap Take 1 0 capsule by mouth daily. fish oil- omega 3-DHA/EPA Take 1 0 300/1,000 mg capsule capsule by mouth daily. calcium carbonate/vitamin Take 1 tablet 0 D2 (CALCIUM + VITAMIN D by mouth PO) daily. vitamins, B complex tab Take 1 tablet 0 by mouth daily. aspirin EC 81 mg tablet Take 81 mg by 0 mouth daily. Take with food. ascorbic acid (VITAMIN C) Take 500 mg 0 500 mg tablet by mouth daily. albuterol sulfate (PROAIR Inhale 2 0 HFA) 90 mcg/actuation HFA puffs by aerosol inhaler mouth into the lungs every 6 hours as needed for Wheezing or Shortness of Breath. Shake well before use. omeprazole DR (PRILOSEC) Take 40 mg by 0 40 mg capsule mouth daily before breakfast. fluticasone propionate Inhale 4 0 (FLOVENT HFA) 220 puffs by mcg/actuation inhaler mouth into the lungs twice daily. atorvastatin (LIPITOR) 20 Take 20 mg by 0 mg tablet mouth daily. dulaglutide (TRULICITY) Inject 0.75 0 0.75 mg/0.5 mL injection mg under the pen skin every 7 days. INSULIN DETEMIR U-100 SC Inject 21 0 Units under the skin twice daily. potassium chloride SR Take 10 mEq 0 (K-DUR) 10 mEq tablet by mouth twice daily. Take with a meal and a full glass of water. hydroCHLOROthiazide Take 25 mg by 0 (HYDRODIURIL) 25 mg mouth every tablet morning. metFORMIN (GLUCOPHAGE) Take 1,000 mg 0 1,000 mg tablet by mouth twice daily with meals. losartan (COZAAR) 50 mg Take 50 mg by 0 tablet mouth twice daily. levothyroxine (SYNTHROID) Take 150 mcg 0 150 mcg tablet by mouth daily 30 minutes before breakfast. added in this encounter
[2020-12-17] MEDS ORDERED: KETOROLAC 60 MG/2 ML VIAL IM STA (07:40)
[2020-12-17] MEDS ORDERED: TRM50T PO (07:46)
--- NOTE | 2020-12-17 07:47 | ED General ---
General Chief Complaint: Back Problems Stated Complaint: LOWER BACK PAIN Nursing Triage Note: Pt awake, alert, oriented. Ambulated from waiting room to ER2 without difficulty. Pt reports midback pain that radiates around to the RUQ of her abdomen. Denies any injury. States that the pain has been present since August. Denies numbness or tingling to extremities. Pt says that she has had a CT, MRI, et HIDA scan done, but they haven't been able to find anything wrong. Airway intact, respirations even et unlabored, skin warm, dry, appropriate for ethnicity. No sx of acute distress. Source of Information: Patient, Old Records History of Present Illness Date Seen by Provider: Dec 17, 2020 Time Seen by Provider: 07:04 Initial Comments 65-year-old female presenting with right upper quadrant and flank pain present since at least August 2020. She occasionally has some nausea with this. She denies any fall or trauma. She has had a CT scan as well as gallbladder imaging and nuclear medicine testing of gall bladder. She states that they had told her that it was not gallstones and could not give her a reason. She is taking a muscle relaxer and duloxetine. She felt the pain was not improving and in the last week she felt like it was worse. She tried to see her regular provider in the clinic yesterday and they did not have an open appointment. She was worried today that her gallbladder would rupture over the weekend because of her pain and symptoms. She has had no fever, chills, vomiting, blood in her stool, blood in her urine. She has chronic diarrhea from irritable bowel and states that that has been stable for her. Timing/Duration: 1 Week (Worse in the last week but present since August) Severity: Moderate Modifying Factors: improves with Eating, improves with Movement Associated Systoms: No Chest Pain, No Cough, No Diaphoresis, No Fever/Chills, No Headaches, No Malaise; Nausea/Vomiting (Nausea but no vomiting); No Seizure, No Shortness of Air, No Syncope, No Weakness Allergies and Home Medications Allergies Coded Allergies: Latex, Natural Rubber (Verified Allergy, Mild, 10/26/20) Home Medications Albuterol Sulfate 1 Puff Puff, 2 PUFF IH Q4H, (Reported) 1 PUFF = 90 MCG Aspirin 81 Mg Tablet.dr, 81 MG PO DAILY, (Reported) B Complex with Vitamin C 1 Each Tablet, 1 EACH PO DAILY, (Reported) Calcium Carbonate/Vitamin D3 1 Each Tablet, 1 EACH PO DAILY, (Reported) Cinnamon Bark 500 Mg Capsule, 1,000 MG PO BID, (Reported) Dulaglutide 1.5 Mg/0.5 Ml Pen.injctr, 1.5 MG SQ WEEK, (Reported) Duloxetine HCl 30 Mg Capsule.dr, 30 MG PO DAILY, (Reported) Garlic 1,000 Mg Capsule, 1,000 MG PO DAILY, (Reported) Hydrochlorothiazide 25 Mg Tablet, 25 MG PO DAILY, (Reported) Insulin Detemir 100 Unit/1 Ml Insuln.pen, 21 UNIT SQ BID, (Reported) Levothyroxine Sodium 150 Mcg Capsule, 150 MCG PO DAILY, (Reported) Lorazepam 1 Mg Tablet, 1 MG PO UD, (Reported) Losartan Potassium 50 Mg Tablet, 50 MG PO DAILY, (Reported) Magnesium Oxide 500 Mg Capsule, 500 MG PO DAILY, (Reported) Metformin HCl 1,000 Mg Tablet, 1,000 MG PO DAILY, (Reported) Castaner 3 Polyunsat Fatty Acids 1,000 Mg Cap, 1,000 MG PO DAILY, (Reported) Potassium Chloride 10 Meq Tab.er.prt, 10 MEQ PO DAILY, (Reported) Tizanidine HCl 4 Mg Tablet, 4 MG PO TID PRN for SPASMS, (Reported) Tramadol HCl 50 Mg Tablet, 50 MG PO Q6H PRN for PAIN-SEVERE (8-10) Prescribed by: YULIANA GODINEZ on 12/17/20 0746 Patient Home Medication List Home Medication List Reviewed: Yes Review of Systems Review of Systems Constitutional: No chills, No fever EENTM: no symptoms reported Respiratory: no symptoms reported Cardiovascular: no symptoms reported Gastrointestinal: see HPI Genitourinary: no symptoms reported Musculoskeletal: see HPI Skin: no symptoms reported Psychiatric/Neurological: No Symptoms Reported Past Lphcgcg-Wdpcgi-Cpoozv Hx Patient Social History Tobacco Use?: No Smoking Status: Never a Smoker Substance use?: No Alcohol Use?: No Pt feels they are or have been: No Immunizations Up To Date Influenza Vaccine Up-to-Date: Yes; Up-to-Date First/Initial COVID19 Vaccinat: June 2020 Second COVID19 Vaccination Alex: July 2020 COVID19 Vaccine Relay Engineer: Moderna Seasonal Allergies Seasonal Allergies: Yes Past Medical History Surgeries: Yes Breast, Eye Surgery, Hysterectomy Respiratory: Yes Asthma Cardiac: Yes Hypertension Neurological: No Genitourinary: No Gastrointestinal: Yes [place]'s Esophagus Musculoskeletal: No Endocrine: Yes Diabetes, Insulin dep, Hypothyroidsim HEENT: No Cancer: Yes (FOLLICULAR NON-HODGKIN'S LYMPHOMA) Psychosocial: Yes Depression Integumentary: No Blood Disorders: No Physical Exam Vital Signs Vital Signs - First Documented 12/17/20 06:30 Temp 36.1 Pulse 64 Resp 14 B/P (MAP) 168/81 (110) Pulse Ox 98 O2 Delivery Room Air Capillary Refill : Height, Weight, BMI Height: '" Weight: lbs. oz. kg; 41.00 BMI Method: General Appearance: No Apparent Distress, WD/WN, Obese HEENT: PERRL/EOMI, Pharynx Normal Neck: Full Range of Motion, Non Tender, Supple Respiratory: Chest Non Tender, Lungs Clear, Normal Breath Sounds, No Accessory Muscle Use, No Respiratory Distress Cardiovascular: Regular Rate, Rhythm, Normal Peripheral Pulses Gastrointestinal: Normal Bowel Sounds, No Pulsatile Mass, Soft; No Distended, No Guarding, No Rebound; Tenderness (Tenderness worse on the right side. No guarding rebound or distention) Rectal: Deferred Back: CVA Tenderness (R) Extremity: Normal Capillary Refill, No Pedal Edema Neurologic/Psychiatric: Alert, Oriented x3 Skin: Normal Color, Warm/Dry Progress/Results/Core Measures Suspected Sepsis SIRS Temperature: Pulse: 64 Respiratory Rate: 14 Blood Pressure 168 /81 Mean: 110 Results/Orders My Orders Orders - YULIANA GODINEZ MD Ketorolac Injection (Toradol Injection) (12/17/20 07:40) Vital Signs/I&O 12/17/20 06:30 Temp 36.1 Pulse 64 Resp 14 B/P (MAP) 168/81 (110) Pulse Ox 98 O2 Delivery Room Air Capillary Refill : Blood Pressure Mean: 110 Progress Note : Progress Note Counseled patient that without labs and repeat imaging could not for sure say if her gallbladder was contributing to the symptoms. Pt refused testing here and states she just wanted to make sure her gallbladder was not bursting or going to burst over the weekend on her. Counseled that with no gallstones to cause obstruction and infection this would not happen. Can try Tramadol for pain on top of her other medicines she is taking and give Toradol shot here in ED. check with Dr. Navarro and [facility] clinic during the week. If she has continued pain they may still schedule her for removal of gallbladder to see if that helps her symptoms. Follow a low fat bland diet in the meantime. Departure Impression Primary Impression: Right upper quadrant abdominal pain Additional Impression: Right flank pain Disposition: 01 HOME, SELF-CARE Condition: Stable Departure-Patient Inst. Decision time for Depature: 07:45 Referrals: NO,LOCAL PHYSICIAN (PCP) Primary Care Physician TEJAS DAHL APRN (Family) Primary Care Physician ELAINA NAVARRO DO Patient Instructions: Abdominal Pain, Adult ED, Flank Pain ED, Low Cholesterol, Saturated Fat, and Trans Fat Diet Add. Discharge Instructions: Try taking the tramadol for severe pain. Follow a low-fat bland diet Check back with Dr. Navarro and her primary care provider this coming week about your recurring symptoms. This may be related back to gallbladder having ejection fraction in the low normal range. Return or seek medical care for lab and imaging testing if you have vomiting, fever over 101 F, or symptoms continue to worsen before you can see your provider. All discharge instructions reviewed with patient and/or family. Voiced understanding. Scripts Tramadol HCl (Tramadol HCl) 50 Mg Tablet 50 MG PO Q6H PRN for PAIN-SEVERE (8-10) for 5 Days, #20 TAB 0 Refills Prov: YULIANA GODINEZ MD 12/17/20 YULIANA GODINEZ MD Dec 17, 2020 07:47
== END 2020-12-17 07:50 | disposition home or self-care (01) ==
LOC: EDUNIT# 06:23 → ER FS 06:27
DX: R10.11 Right upper quadrant pain (principal); J45.909 Unspecified asthma, uncomplicated; I10 Essential (primary) hypertension; E11.9 Type 2 diabetes mellitus without complications; E03.9 Hypothyroidism, unspecified; F32.9 Major depressive disorder, single episode, unspecified; Z79.890 Hormone replacement therapy; Z79.4 Long term (current) use of insulin; Z79.899 Other long term (current) drug therapy; Z79.82 Long term (current) use of aspirin
CPT/HCPCS: 99284

== ENCOUNTER → 2021-01-13 | Outpatient (CLI) | payer BC ==
[~2021-01-13] MED LIST changes: +CATHETER FLUSH 10 ML SYR IV PRN; +TRM50T PO
--- NOTE | 2021-01-13 12:13 | Diagnostic Imaging Report ---
INDICATION: Epigastric abdominal pain. Patient was administered 5.5 mCi technetium 99m Choletec intravenously and imaging over the abdomen was performed. At 60 minutes patient ingested Ensure and gallbladder ejection fraction was calculated. There is homogeneous uptake of activity by the liver with prompt excretion of activity into the gallbladder and common duct. There is normal passage of activity into the small bowel. Gallbladder ejection fraction is abnormally low at 3%. Normal values are 35% or greater. IMPRESSION: 1. Patent cystic duct and common bile duct. 2. Low gallbladder ejection fraction of 3%. Dictated by: Dictated on workstation # [id number]
== END ==
LOC: CARD 10:00
PROVIDERS: ATTEND Surgery
DX: R10.13 Epigastric pain (principal); M54.9 Dorsalgia, unspecified
CPT/HCPCS: 78227; A9537

== ENCOUNTER 2021-02-01 05:47 | Outpatient (CLI) | payer BC ==
[~2021-02-01] VITALS: Ht 160 cm; Wt 106.1 kg
[~2021-02-01 05:47] MED LIST changes: -CATHETER FLUSH 10 ML SYR IV PRN
[2021-02-06] MEDS ORDERED: LOSA50TA63 PO (14:36)
[2021-02-06] MEDS ORDERED: METF-399 PO (14:36)
[2021-02-06] MEDS ORDERED: POTA10TA36 PO (14:36)
[2021-02-06] MEDS ORDERED: ATOR20TA66 PO (14:36)
[2021-02-06] MEDS ORDERED: OMEP40CA6 PO (14:36)
[2021-02-06] MEDS ORDERED: FLUO20CA42 PO (14:37)
[2021-02-08] MEDS ORDERED: ACHD5005 PO (09:01)
== END 2021-02-06 14:48 | disposition home or self-care (01) ==
LOC: PREOP 05:47
PROVIDERS: ATTEND Surgery
DX: Z01.818 Encounter for other preprocedural examination (principal)

== ENCOUNTER 2021-02-08 06:46 | Day surgery (SDC) | payer BC ==
[~2021-02-08] VITALS: Ht 160 cm; Wt 106.1 kg
[2021-02-08] VITALS (11 sets, daily range): BP systolic 128–183; BP diastolic 57–88
[~2021-02-08 06:46] MED LIST changes: +FLUO20CA42 PO
[2021-02-08] MEDS ORDERED: ONDANSETRON 4 MG/2 ML (SDV) Z0FRAN ONE (06:51)
[2021-02-08] MEDS ORDERED: fentaNYL INJ 100 MCG/2 ML AMP ONE ×2 (06:51→09:21)
[2021-02-08] MEDS ORDERED: LIDOCAINE PF 2% 5 ML (XYLOCAINE) VIAL ONE (06:51)
[2021-02-08] MEDS ORDERED: MIDAZOLAM 2 MG/2 ML (VERSED) VIAL ONE (06:51)
[2021-02-08] MEDS ORDERED: proPOfol 200 MG/20 ML (DIPRIVAN) VIAL IV ONE (06:51)
[2021-02-08] MEDS ORDERED: ceFAZolin 2 GM IV Premixed 50 ML IV ONE (07:00)
[2021-02-08] MEDS ORDERED: LIDOCAINE/EPI 1%-1:100,000 (XYLOCAINE) 20ML ONE (07:20)
[2021-02-08] MEDS: LACTATED RINGERS 1,000 ML IV PRN ×2 (07:22→09:00)
--- NOTE | 2021-02-08 08:05 | Progress Note-Pre Operative ---
Pre-Operative Progress Note H&P Reviewed The H&P was reviewed, patient examined and no changes noted. Time Seen by Provider: 07:59 Date H&P Reviewed: Feb 08, 2021 Time H&P Reviewed: 07:59 Pre-Operative Diagnosis: Biliary dyskinesia ELAINA NAVARRO DO Feb 08, 2021 08:05
[2021-02-08] MEDS ORDERED: GLYCOPYRROLATE 0.2 MG/ML (ROBINUL) 2 ML VIAL ONE (08:58)
[2021-02-08] MEDS ORDERED: ROCURONIUM 10 MG/ML 5 ML SYRINGE IV ONE (08:58)
[2021-02-08] MEDS ORDERED: NEOSTIGMINE 3 MG/3 ML VIAL ONE (08:58)
--- NOTE | 2021-02-08 09:00 | Progress Note-Post Operative ---
Post-Operative Progess Note Surgeon (s)/Container Washer (s) Surgeon ELAINA NAVARRO DO Container Washer: [place] Pre-Operative Diagnosis Biliary dyskinesia Post-Operative Diagnosis Same Procedure & Operative Findings Date of Procedure 02/08/21 Procedure Performed/Findings PROCEDURE: Laparoscopic cholecystectomy with intraoperative cholangiogram. COMPLICATIONS: None. PROCEDURE: The patient was taken to the operating suite and was prepped and draped in sterile fashion. A surgical pause was performed. Just superior to the umbilicus, a 12 mm incision was made. Dissection was taken down to the fascia, which was then scored and grasped with a Shade and the abdomen was then entered. A 0 Vicryl suture was placed in a [id number] fashion and a Lamar trocar was placed and secured. Pneumoperitoneum was achieved. A 5mm trochar place in the subxyphoid and 2 in the right upper quadrant. The gallbladder was then grasped and elevated. The cystic duct, and cystic artery were then dissected out. Clip was placed on the distal portion of the cystic duct which was then partially transected. An arrow catheter was inserted into the duct. The cholangiogram was then performed. No filing defects and contrast made its way into the duodenum. Catheter removed. Clips were placed on proximal portion of the cystic duct and then the duct was then transected. Clips were placed along the proximal and distal portion of the cystic artery which was then transected. Hook cautery was used to dissect the gallbladder from the gallbladder fossa achieving hemostasis. The gallbladder was placed in an Endobag and removed through the 12 mm trocar site. The abdomen was then reinspected. Copious amounts of irrigation were used to irrigate the abdomen and there were no signs of active bleeding. Hemostasis had been achieved. The 12 mm fascial defect was then closed with 0 Vicryl suture that had been placed in a [id number] fashion. The abdomen was then desufflated, the trocars were removed. The abdomen was then washed and dried. The skin was then closed using 4-0 Monocryl in a subcuticular fashion. The abdomen was washed and dried and Skin Affix was place over incisions. Patient tolerated the procedure well without any complications and was taken to the recovery room in stable condition. Anesthesia Type GET Estimated Blood Loss Estimated blood loss (mL): scant Specimens/Packing Specimens Removed GB and contents ELAINA NAVARRO DO Feb 08, 2021 09:00
[2021-02-08] MEDS ORDERED: ACHD5005 PO (09:01)
--- NOTE | 2021-02-08 09:02 | Discharge Inst-Surgical ---
Discharge Inst-Surgical Depart Medication/Instructions New, Converted or Re-Newed RX: Transmitted to Pharmacy Patient Instructions Follow up Appt: Make appointment for 1 week. [phone] Instructions: No lifting greater than 20 pounds. No strenuous activity. May shower in 24 hours, no tub bath or soaking. Use incentive spirometer at home as directed. No Smoking Skin/Wound Care: May remove bandages in am. You need to leave the Dermabond on incision it will fall off on it's own. Symptoms to Report: Appetite Changes, Extremity Discoloration, Numbness/Tingling, Swelling Increased, Bleeding Excessive, Eyesight Changes, Pain Increased, Urine Color Change, Constipation(Persistent), Fever over 101 degree F, Pain/Pressure in chest, Urinating Difficulty, Cough Up/Vomit Blood, Heart Beat Irreg/Pounding, Pain/Pressure in jaw, Cramps in feet or legs, Lightheadedness, Pain/Pressure in shoulder, Diarrhea(Persistent), Memory Changes Suddenly, Questions/Concerns, Weight gain consecutive days, Dizziness/Fainting, Nausea/Vomiting, Shortness of Breath, Weight gain over 2 pounds If questions or concerns contact your physician Or seek help at emergency department. Activity Activity as Tolerated: Yes Activity Instructions: Avoid Stress to Incision Driving Instructions: No Driving/Refer to Dr. Godinez Discharge Diet: Avoid Fatty Foods, Low Fat/Low Cholesterol Diet After 24 Hours: Clear Liquid if Nauseous If Any Problems/Questions/Issu: Contact Your Physician, Go to Emergency Room Skin/Wound Care Infection Signs and Symptoms: Increased Redness, Foul Odor of Wound, Increased Drainage, Skin Itchy or Has a Rash, Increased Swelling, Temperature Above 101 F Wound Care Comment: heating pad for pain in neck or shoulder tonight Bathing Instructions: Shower Stitches/[place]/Dermabond Dis: ELAINA Jewell DO Feb 08, 2021 09:02
--- NOTE | 2021-02-08 09:17 | Anesthesia-General Post-Op ---
General Patient Condition Mental Status/LOC: Same as Preop Cardiovascular: Satisfactory Nausea/Vomiting: Absent Respiratory: Satisfactory Pain: Controlled Complications: Absent Post Op Complications Complications None Follow Up Care/Instructions Patient Instructions None needed. Anesthesia/Patient Condition Patient Condition Patient is doing well, no complaints, stable vital signs, no apparent adverse anesthesia problems. No complications reported per nursing. MAGDALENA REYES CRNA Feb 08, 2021 09:17
[2021-02-08] MEDS ORDERED: ONDANSETRON 4 MG/2 ML (SDV) Z0FRAN IVP PRN (09:30)
[2021-02-08] MEDS ORDERED: fentaNYL INJ 100 MCG/2 ML AMP IVP ONE (09:30)
[2021-02-08] MEDS ORDERED: morphine INJ 10 MG/ML 1ML (SYR OR VIAL) IVP ONE (09:30)
[2021-02-08] MEDS ORDERED: morphine INJ 10 MG/ML 1ML (SYR OR VIAL) ONE (09:50)
[2021-02-08] MEDS ORDERED: HYDROcodone/APAP 5 MG/325 MG (LORTAB) TAB PO ONE (10:30)
--- NOTE | 2021-02-08 10:36 | Diagnostic Imaging Report ---
Indication: Fluoroscopy for intraoperative cholangiogram. Fluoroscopy was provided in the OR during intraoperative Cholangiogram. 16 seconds of fluoroscopic time was utilized. 100 images were obtained. Images demonstrate contrast being injected via the cystic duct remnant. Intrahepatic and extra hepatic bile ducts appear to normal caliber. No filling defects are seen to suggest retained stone. Contrast flows into the duodenum. IMPRESSION: Fluoroscopy during intraoperative cholangiogram. Dictated by: Dictated on workstation # [id number]
== END 2021-02-08 11:50 | disposition home or self-care (01) ==
LOC: SDC 06:46
PROVIDERS: ATTEND Surgery
DX: K80.10 Calculus of gallbladder with chronic cholecystitis without obstruction (principal); K82.8 Other specified diseases of gallbladder; I10 Essential (primary) hypertension; E78.5 Hyperlipidemia, unspecified; J45.909 Unspecified asthma, uncomplicated; K21.9 Gastro-esophageal reflux disease without esophagitis; E11.9 Type 2 diabetes mellitus without complications; E66.01 Morbid (severe) obesity due to excess calories; G62.9 Polyneuropathy, unspecified; K22.70 Barrett's esophagus without dysplasia; E78.00 Pure hypercholesterolemia, unspecified; E03.9 Hypothyroidism, unspecified; Z85.828 Personal history of other malignant neoplasm of skin; Z68.41 Body mass index [BMI] 40.0-44.9, adult; Z79.899 Other long term (current) drug therapy; Z90.710 Acquired absence of both cervix and uterus; Z79.890 Hormone replacement therapy; Z79.84 Long term (current) use of oral hypoglycemic drugs; Z80.3 Family history of malignant neoplasm of breast; Z80.0 Family history of malignant neoplasm of digestive organs
CPT/HCPCS: 76000; 82947; 87081

== ENCOUNTER 2021-09-06 10:16 | Outpatient (RCR) | payer MEDICARE, OTHER ==
[~2021-09-06 10:16] MED LIST changes: +ACHD5005 PO; -POTA10TA36 PO; +POTA10TA37 PO; +TIZA-186 PO; -TIZA4TAB4 PO
[2021-09-06 10:32] LABS: BASOPHILS % (AUTO) 1 % (0-10); EOSINOPHILS # (AUTO) 0.2 10^3/uL (0.0-0.3); EOSINOPHILS % (AUTO) 2 % (0-10); HEMATOCRIT 41 % (35-52); HEMOGLOBIN 13.3 g/dL (11.5-16.0); LYMPHOCYTES # (AUTO) 1.2 10^3/uL (1.0-4.0); LYMPHOCYTES % (AUTO) 17 % (12-44); MEAN CORPUSCULAR HEMOGLOBIN 27 pg (25-34); MEAN CORPUSCULAR HGB CONC 33 g/dL (32-36); MEAN CORPUSCULAR VOLUME 83 fL (80-99); MEAN PLATELET VOLUME 9.9 fL (9.0-12.2); MONOCYTES # (AUTO) 0.5 10^3/uL (0.0-1.0); MONOCYTES % (AUTO) 8 % (0-12); NEUTROPHILS # (AUTO) 4.9 10^3/uL (1.8-7.8); NEUTROPHILS % (AUTO) 72 % (42-75); PLATELET COUNT 299 10^3/uL (130-400); WHITE BLOOD COUNT 6.7 10^3/uL (4.3-11.0)
[2021-09-06 10:53] LABS: ALBUMIN 4.2 GM/DL (3.2-4.5); POTASSIUM 4.2 MMOL/L (3.6-5.0)
[2021-09-06 10:54] LABS: CALCIUM 9.6 MG/DL (8.5-10.1)
[2021-09-06 10:56] LABS: TOTAL PROTEIN 6.6 GM/DL (6.4-8.2)
[2021-09-06 10:57] LABS: BILIRUBIN,TOTAL 0.4 MG/DL (0.1-1.0)
[2021-09-06 10:59] LABS: CREATININE SERUM 0.68 MG/DL (0.60-1.30)
== END 2021-09-26 | disposition home or self-care (01) ==
LOC: ONC 10:16
PROVIDERS: ATTEND Internal Medicine Hematology & Oncology
DX: C82.90 Follicular lymphoma, unspecified, unspecified site (principal); J45.909 Unspecified asthma, uncomplicated; E11.9 Type 2 diabetes mellitus without complications; I10 Essential (primary) hypertension; E03.9 Hypothyroidism, unspecified
CPT/HCPCS: 36415; 80053; 83615; 85025

== ENCOUNTER 2022-09-05 10:10 | Outpatient (RCR) | payer MEDICARE, OTHER ==
[~2022-09-05 10:10] MED LIST changes: +ALBU8.5H6 IH; -INSU100I29 SQ; +INSU100I30 SQ; +POTA-177 PO; -POTA10TA37 PO; -RT-ALBUINH IH
[2022-09-05 10:43] LABS: BASOPHILS # (AUTO) 0.1 10^3/uL (0.0-0.1); BASOPHILS % (AUTO) 1 % (0-10); EOSINOPHILS # (AUTO) 0.2 10^3/uL (0.0-0.3); EOSINOPHILS % (AUTO) 3 % (0-10); HEMATOCRIT 38 % (35-52); HEMOGLOBIN 12.6 g/dL (11.5-16.0); LYMPHOCYTES # (AUTO) 1.2 10^3/uL (1.0-4.0); LYMPHOCYTES % (AUTO) 19 % (12-44); MEAN CORPUSCULAR HEMOGLOBIN 27 pg (25-34); MEAN CORPUSCULAR HGB CONC 33 g/dL (32-36); MEAN CORPUSCULAR VOLUME 81 fL (80-99); MEAN PLATELET VOLUME 9.9 fL (9.0-12.2); MONOCYTES # (AUTO) 0.4 10^3/uL (0.0-1.0); MONOCYTES % (AUTO) 7 % (0-12); NEUTROPHILS # (AUTO) 4.3 10^3/uL (1.8-7.8); NEUTROPHILS % (AUTO) 70 % (42-75); PLATELET COUNT 269 10^3/uL (130-400); WHITE BLOOD COUNT 6.1 10^3/uL (4.3-11.0)
[2022-09-05 11:05] LABS: ALBUMIN 3.9 GM/DL (3.2-4.5); BILIRUBIN,TOTAL 0.5 MG/DL (0.1-1.0); CALCIUM 8.5 MG/DL (8.5-10.1); CREATININE SERUM 0.68 MG/DL (0.60-1.30); POTASSIUM 4.1 MMOL/L (3.6-5.0)
== END 2022-09-26 | disposition home or self-care (01) ==
LOC: ONC 10:10
PROVIDERS: ATTEND Internal Medicine Hematology & Oncology
DX: C82.90 Follicular lymphoma, unspecified, unspecified site (principal); E11.9 Type 2 diabetes mellitus without complications; I10 Essential (primary) hypertension; E03.9 Hypothyroidism, unspecified; J45.909 Unspecified asthma, uncomplicated
CPT/HCPCS: 36415; 80053; 83615; 85025

== ENCOUNTER 2023-02-13 06:17 | Outpatient (CLI) | payer MEDICARE, OTHER ==
[~2023-02-13] VITALS: Ht 160 cm; Wt 109.3 kg
[2023-02-13] MEDS ORDERED: VITA0.4T18 PO (13:23)
[2023-02-13] MEDS ORDERED: ASCO500T16 PO (13:23)
[2023-02-13] MEDS ORDERED: CALC-794 PO (13:23)
[2023-02-13] MEDS ORDERED: CEFU250T80 PO (13:23)
[2023-02-13] MEDS ORDERED: TURM500T PO (13:23)
[2023-02-13] MEDS ORDERED: MAGN400T39 PO (13:23)
[2023-02-13] MEDS ORDERED: MELO15TA39 PO (13:23)
[2023-02-13] MEDS ORDERED: ALBU90AE2 IH (13:23)
[2023-02-13] MEDS ORDERED: CINN500C2 PO (13:23)
[2023-02-13] MEDS ORDERED: CHOL200074 PO (13:23)
[2023-02-13] MEDS ORDERED: ASPI-1238 PO (13:23)
[2023-02-13] MEDS ORDERED: AMLO2.5T4 PO (13:23)
[2023-02-13] MEDS ORDERED: GARL10002 PO (13:23)
== END 2023-02-13 13:34 | disposition home or self-care (01) ==
LOC: PREOP 06:17
PROVIDERS: ATTEND Surgery
DX: Z01.818 Encounter for other preprocedural examination (principal)

== ENCOUNTER 2023-02-18 09:35 | Day surgery (SDC) | payer MEDICARE, OTHER ==
[~2023-02-18] VITALS: Ht 160 cm; Wt 109.3 kg
[~2023-02-18 09:35] MED LIST changes: +ALBU90AE2 IH; +AMLO2.5T4 PO; +ASCO500T16 PO; +CALC-794 PO; +CEFU250T80 PO; +CHOL200074 PO; +MAGN400T39 PO; +MELO15TA39 PO; +TURM500T PO; +VITA0.4T18 PO
[2023-02-18] MEDS ORDERED: LACTATED RINGERS 1,000 ML 1,000 ML IV STA (09:36)
[2023-02-18] MEDS ORDERED: HURRICAINE EXT TUBE (BENZOCAINE) XX PRN (09:45)
--- NOTE | 2023-02-18 10:03 | Progress Note-Pre Operative ---
Pre-Operative Progress Note Date of Available H&P: Feb 07, 2023 Date H&P Reviewed: Feb 18, 2023 Time H&P Reviewed: 09:59 History & Physical: H&P Reviewed, Patient Examed, No changes noted Pre-Operative Diagnosis: GERD, Screening ELAINA NAVARRO DO Feb 18, 2023 10:03
[2023-02-18 10:12] VITALS: BP 150/93
[2023-02-18] MEDS ORDERED: MIDAZOLAM INJ 2 MG/2 ML VIAL ONE (11:42)
[2023-02-18 12:25] VITALS: BP 111/63
[2023-02-18 12:30] VITALS: BP 111/63
--- NOTE | 2023-02-18 12:35 | Progress Note-Post Operative ---
Post-Operative Progess Note Surgeon (s)/Nylon Operator (s) Surgeon ELAINA NAVARRO DO Nylon Operator: Oma Byers, MSIII Pre-Operative Diagnosis GERD, Screening Post-Operative Diagnosis Gastritis Hiatal hernia polyp early diverticulosis hemorrhoids Procedure & Operative Findings Date of Procedure 02/18/23 Procedure Performed/Findings EGD with biopsy Colonoscopy with snare polypectomy PROCEDURE NOTE: After informed consent was obtained, the patient was brought to the endoscopy suite, placed in bed in left lateral decubitus position. She was administered IV sedation by the TREE FELLER OPERATOR who then monitored vitals the entire time, heart rate, blood pressure and pulse ox and the scope was inserted down the mouth through the esophagus into the stomach. On the way down, noted some mild esophagitis, took a picture, pushed into the stomach, pushed past the antrum into the duodenum. Duodenum looked good. Pulled back and did a biopsy of antrum, then retroflexed the scope, saw hiatal hernia, took a picture of this and then pulled the scope into the GE junction, took another picture of the hiatal hernia and then did a biopsy of the GE junction. Pushed the scope back into the stomach, suctioned all the air out of the stomach. At this point pulled the scope up the esophagus and out the mouth. Switched camera, switched gloves, went down below and started the colonoscopy. Pushed all the way to about 150 cm and pushed into the cecum, took a picture of appendiceal orifice and noted the ileocecal valve. Then slowly withdrew the scope insufflating to look circumferentially at the gan starting in the cecum, up the ascending colon to the hepatic flexure, then down the transverse colon. I found a polyp here and removed it with the snare. Continued to the splenic flexure, into the descending colon and down into the sigmoid. I found another polyp here and removed it with the snare. Finally, into the rectal vault and retroflexed the scope. Took a picture of the internal hemorrhoids. The patient tolerated the procedure and she recovered in the endoscopy suite. Recommended for repeat colonoscopy in 5 years Anesthesia Type IV sedation by TREE FELLER OPERATOR Estimated Blood Loss Estimated blood loss (mL): scant Specimens/Packing Specimens Removed antral bx body of stomach bx GE jxn bx Transverse colon polyp sigmoid polyp ELAINA NAVARRO DO Feb 18, 2023 12:34
--- NOTE | 2023-02-18 12:36 | Endoscopy Discharge Instruct ---
Endo Procedure/Findings Findings 1.: Hiatal Hernia, Gastritis 2.: Polyp 3.: Diverticulosis 4.: Internal Hemorrhoids Discharge Instructions - Activity: You might feel a little sleepy until tomorrow. This is due to the medicine you received to relax you. Until tomorrow, you should: NOT drive a car, operate machinery or power tools. NOT drink any alcoholic beverages. NOT make any important decisions or sign importortant papers. Do not return to work until tomorrow, unless otherwise instructed. Resume previous activities tomorrow. Diet: Start by taking liquids. If you tolerate liquids, advance to solid food. 1.: EGD in 3 years 2.: Colonscopy in 5 years Notify Physician - If you experience excessive bleeding, unusual abdominal pain, fever, or chest pain, contact your doctor immediately. Follow-Up: Other Follow up in my office in one week ELAINA NAVARRO DO Feb 18, 2023 12:36
[2023-02-18 13:00] VITALS: BP 131/70
[2023-02-18 13:15] VITALS: BP 131/70
--- NOTE | 2023-02-18 13:33 | Anesthesia-General Post-Op ---
MAC Patient Condition Mental Status/LOC: Same as Preop Cardiovascular: Satisfactory Nausea/Vomiting: Absent Respiratory: Satisfactory Pain: Controlled Complications: Absent Post Op Complications Complications None Follow Up Care/Instructions Patient Instructions None needed. Anesthesiology Discharge Order Discharge Order Patient is doing well, no complaints, stable vital signs, no apparent adverse anesthesia problems. No complications reported per nursing. VENESSA MONDRAGON CRNA Feb 18, 2023 13:33
== END 2023-02-18 13:15 | disposition home or self-care (01) ==
LOC: ENDO 09:35
PROVIDERS: ATTEND Surgery
DX: D12.3 Benign neoplasm of transverse colon (principal); D12.5 Benign neoplasm of sigmoid colon; K31.89 Other diseases of stomach and duodenum; K29.70 Gastritis, unspecified, without bleeding; K44.9 Diaphragmatic hernia without obstruction or gangrene; K21.00 Gastro-esophageal reflux disease with esophagitis, without bleeding; K57.30 Diverticulosis of large intestine without perforation or abscess without bleeding; K64.8 Other hemorrhoids; Z80.0 Family history of malignant neoplasm of digestive organs; Z85.828 Personal history of other malignant neoplasm of skin; E11.9 Type 2 diabetes mellitus without complications; Z79.4 Long term (current) use of insulin; Z79.84 Long term (current) use of oral hypoglycemic drugs; Z79.85 Long-term (current) use of injectable non-insulin antidiabetic drugs
CPT/HCPCS: 88305